=== PATIENT | male | born 1960 | race Caucasian/White ===

== ENCOUNTER 2024-10-18 19:24 | Emergency (ER) | payer MEDICARE, OTHER ==
[~2024-10-18] VITALS: Ht 172.7 cm; Wt 68.0 kg
[~2024-10-18 19:24] MED LIST: ATARAX,VISTARIL50 MG PO; MIRTAZAPINE15 M2 PO; NALTREXONE50 MG PO; NATURE'S BLEND F1 MG PO; OLANZAPINE5 MG PO; PROZAC20 MG PO; THERA TABS1 TAB PO; VITAMIN B-11 TAB PO; ZOFRAN4 MG PO
[2024-10-18] MEDS ORDERED: Lidocaine Hydrochloride 2% 10 ML AMP SC ONE (20:00)
[2024-10-18] MEDS ORDERED: Bacitracin Zinc 14 GM TUBE T ONE (20:00)
[2024-10-18] MEDS ORDERED: Tdap Vaccine 0.5 ML SYR (Adult Vaccine) IM ONE (22:45)
[2024-10-18] MEDS ORDERED: CEPHALEXIN500 M1 PO (22:47)
[2024-10-18] MEDS ORDERED: CEPHALEXIN 500 MG CAP PO ONE (22:50)
== END 2024-10-18 22:40 | disposition home or self-care (01) ==
LOC: ED 19:24
DX: S01.111A Laceration without foreign body of right eyelid and periocular area, initial encounter (principal); F17.200 Nicotine dependence, unspecified, uncomplicated; Z79.82 Long term (current) use of aspirin; Z79.899 Other long term (current) drug therapy; Z98.890 Other specified postprocedural states; W18.39XA Other fall on same level, initial encounter; Y93.89 Activity, other specified; Y92.89 Other specified places as the place of occurrence of the external cause; Y99.8 Other external cause status